=== PATIENT | female | born 2000 | race Two or more races ===

== ENCOUNTER 2020-07-04 10:50 | Outpatient (CLI) | payer OTHER | END 2020-07-04 10:52 | disposition home or self-care (01) | LOC: PPH VACUNA 10:50 | DX: Z23 Encounter for immunization (principal) ==

== ENCOUNTER 2020-08-03 08:00 | Outpatient (CLI) | payer OTHER | END 2020-08-03 08:30 | disposition home or self-care (01) | LOC: PPH VACUNA 08:00 | DX: Z23 Encounter for immunization (principal) ==